=== PATIENT | male | born 1945 | race Caucasian/White ===

== ENCOUNTER 2021-01-14 01:07 | Observation (INO) | payer OTHER ==
[~2021-01-14] VITALS: Ht 182.9 cm; Wt 111.6 kg
[2021-01-14] VITALS (8 sets, daily range): BP systolic 114–133; BP diastolic 60–82
[~2021-01-14 01:07] MED LIST: ACCUNEB SO1.25 MG/1 INH; ALFUZOSIN HCL10 MG PO; ASPIR 8181 MG PO; CIALIS2.5 MG PO; EFFIENT10 MG PO; HYDROCHLOROTHIA25 M2 PO; HYDROCODONE-AP1 EAC6 PO; IBUPROFEN 600600 M1 PO; JARDIANCE25 MG PO; KLOR-CON 1010 MEQ PO; LEVAQUIN 500 M500 M2 PO; LIPITOR 10 MG10 M1 PO; LIPITOR10 MG PO; OXYBUTYNIN 5 MG5 M2 PO; SUPER THERAVIT1 EACH PO; TOPROL XL100 MG PO; VITAMIN E200 UNI1 PO; VITAMIN E400 UNIT
[2021-01-14] MEDS ORDERED: EFFIENT10 MG PO (01:13)
[2021-01-14 01:29] LABS: ABSOLUTE NEUTROPHILS 4.2 thou/uL (1.4-8.2); BASOPHILS 1.3 % (0.0-2.0); EOSINOPHILS 1.2 % (0.0-3.0); HEMATOCRIT 43.8 % (42.0-52.0); HEMOGLOBIN 14.5 gm/dL (14.0-18.0); LYMPHOCYTES 31.9 % (24.0-44.0); MCH 29.5 pg (26.0-34.0); MCHC 33.2 g/dL (28.0-37.0); MCV 88.7 fL (80.0-100.0); MONOCYTES 8.9 % (1.0-8.0); PLATELET COUNT 193 thou/uL (150-400); POLYS 56.7 % (36.0-66.0); RBC 4.93 mil/uL (4.50-6.00); RDW 14.2 % (10.5-14.5); WBC 7.5 thou/uL (4.0-11.0)
[2021-01-14 01:42] LABS: ANION GAP 10 mmol/L (7-16); BUN 19 mg/dL (7-18); CALCIUM 8.7 mg/dL (8.5-10.1); CHLORIDE 102 mmol/L (98-107); CO2 24 mmol/L (21-32); CREATININE 1.1 mg/dL (0.7-1.3); GLUCOSE 145 mg/dL (74-106); POTASSIUM 3.5 mmol/L (3.5-5.1); SODIUM 136 mmol/L (136-145)
[2021-01-14 01:52] LABS: ALBUMIN 3.5 g/dL (3.4-5.0); SGOT 18 U/L (15-37); SGPT 22 U/L (16-63); TOTAL BILIRUBIN 0.4 mg/dL (0.2-1.0); TROPONIN-I <0.06 ng/mL (<0.06)
--- NOTE | 2021-01-14 10:53 | NUR ---
Met with patient who resides in independent home with son. 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 Patient cont to drive. Patient does not use any assistive device. Patient resides in home with steps to basement and bedroom. Patient reports no difficulty. patient reports he does not want numerous tests. He wants to f/u with his cardilogist Dr Reed. Patient has DME at home from prev use by who is . He reports if he needs a walker he has one but does not use. Anticipate no dc needs for casemgt cont to follow
--- NOTE | 2021-01-14 14:54 | EKG ---
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
--- NOTE | 2021-01-14 14:55 | EKG ---
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
--- NOTE | 2021-01-14 15:56 | NUR ---
ASSUMED CARE OF PT AT SHIFT CHANGE FROM ER D/T CHEST PAIN. ADMISSION COMPLETE. PT A&OX4, NO C/O CHEST PAIN OR DISTRESS. PT WANTS TO GO HOME BECAUSE FEELS FINS AND HAS OWN CARDIOLOGY AT [facility]. DR. DALY OK'D DISCHARGE. DISCHARGE ORDERS AND INSTRUCTIONS COMPLETE. NURSING STAFF WALKED PT TO ER ENTRANCE TO SON WAITING IN CAR.
== END 2021-01-14 15:45 | disposition home or self-care (01) ==
LOC: ER 01:07 → EROBS 05:27 → ER 05:27 → EROBS 05:27 → 2N 05:59 → EROBS 05:59 → 2N 06:00
PROVIDERS: Emergency Medicine; ADMIT Hospitalist; ATTEND Hospitalist
DX: R07.89 Other chest pain (principal); R79.89 Other specified abnormal findings of blood chemistry; I25.10 Atherosclerotic heart disease of native coronary artery without angina pectoris; I10 Essential (primary) hypertension; E78.5 Hyperlipidemia, unspecified; E11.9 Type 2 diabetes mellitus without complications; Z79.899 Other long term (current) drug therapy; Z79.82 Long term (current) use of aspirin; Z98.890 Other specified postprocedural states; Z87.891 Personal history of nicotine dependence